=== PATIENT | male | born 1935 | race Caucasian/White ===

== ENCOUNTER → 2020-03-05 | Outpatient (CLI) | payer MEDICARE, OTHER ==
[~2020-03-05] MED LIST: ASPIRIN81 M1 PO; PREVACID30 MG PO; ZITHROMAX250 MG PO
== END | disposition home or self-care (01) ==
LOC: COVID19 13:06
DX: R50.9 Fever, unspecified (principal); Z20.828 Contact with and (suspected) exposure to other viral communicable diseases